=== PATIENT | male | born 1960 | race African-American/Black ===

== ENCOUNTER 2016-10-30 17:07 | Emergency (ER) | payer OTHER ==
[~2016-10-30] VITALS: Ht 154.9 cm; Wt 115.0 kg
[2016-10-30 17:16] VITALS: TEMP 37; Ht 154.9 cm; Wt 115.0 kg
[2016-10-30] MEDS ORDERED: SODIUM CHLORIDE 0.9% 1000ML 1,000 ML IV STA (17:24)
[2016-10-30] MEDS ORDERED: DIPHTHERIA/TETANUS/PERTUSSIS 0.5 ML SYR/VIAL IM. ONE (17:30)
[2016-10-30 17:44] VITALS: O2SAT 98
[2016-10-30 17:52] LABS: ISTAT CREATININE 1.2 mg/dl (0.6-1.3); ISTAT HEMOGLOBIN 15.3 g/dl (14.0-18.0); ISTAT IONIZED CALCIUM 1.11 mmol/l (1.12-1.32)
[2016-10-30] MEDS ORDERED: LISI-725 PO (18:01)
[2016-10-30] MEDS ORDERED: GLC/500 PO (18:01)
[2016-10-30] MEDS ORDERED: ATOR-22 PO (18:01)
[2016-10-30] MEDS ORDERED: CLX/20 PO (18:01)
[2016-10-30] MEDS ORDERED: HYDR25TA4 PO (18:01)
[2016-10-30] MEDS ORDERED: XRL15 PO (18:01)
[2016-10-30 18:06] LABS: PROTHROMBIN TIME (PATIENT) 10.7 SECONDS (9.0-12.0)
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
[2016-10-30] MEDS ORDERED: OPTIRAY 320 IV PRN (18:30)
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
[2016-10-30 18:31] VITALS: PULSE 105; O2SAT 97
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
[2016-10-30] MEDS ORDERED: MoRPHine SULFATE 4 MG/ML 1 ML CARP IV STA (19:12)
[2016-10-30] MEDS ORDERED: OXYCODONE IR HOME PACK PO ONE (19:15)
[2016-10-30] MEDS ORDERED: OXYC1TAB3 PO (19:17)
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
[2016-10-30 19:50] VITALS: BP 164/98
== END 2016-10-30 19:51 | disposition home or self-care (01) ==
LOC: EDBD 17:07 → C.EDC 17:11
DX: S43.102A Unspecified dislocation of left acromioclavicular joint, initial encounter (principal); S20.212A Contusion of left front wall of thorax, initial encounter; S60.511A Abrasion of right hand, initial encounter; V87.7XXA Person injured in collision between other specified motor vehicles (traffic), initial encounter; Y93.89 Activity, other specified; Y99.8 Other external cause status; Y92.488 Other paved roadways as the place of occurrence of the external cause; E11.9 Type 2 diabetes mellitus without complications; I10 Essential (primary) hypertension; F17.200 Nicotine dependence, unspecified, uncomplicated; Z86.711 Personal history of pulmonary embolism; Z83.3 Family history of diabetes mellitus; Z82.49 Family history of ischemic heart disease and other diseases of the circulatory system; Z79.01 Long term (current) use of anticoagulants; Z79.84 Long term (current) use of oral hypoglycemic drugs; Z79.899 Other long term (current) drug therapy